=== PATIENT | female | born 1980 | race Two or more races ===

== ENCOUNTER 2018-12-29 16:05 | Observation (INO) | payer OTHER ==
[~2018-12-29] VITALS: Ht 164 cm; Wt 71.7 kg
[~2018-12-29 16:05] MED LIST: DSS100 PO; IBUP-2070 PO; PERCT PO; PREN1TAB80 PO
[2018-12-29 16:44] VITALS: BP 117/59
== END 2018-12-29 17:30 | disposition home or self-care (01) ==
LOC: 4S 16:05
PROVIDERS: ADMIT Obstetrics & Gynecology; ATTEND Obstetrics & Gynecology
DX: O24.419 Gestational diabetes mellitus in pregnancy, unspecified control (principal); Z3A.37 37 weeks gestation of pregnancy
CPT/HCPCS: 36415; 76805; 81002; 83036; G0378

== ENCOUNTER 2019-01-10 10:22 | Inpatient (IN) | payer OTHER ==
[~2019-01-10] VITALS: Ht 164 cm; Wt 72.6 kg
[2019-01-10] MEDS ORDERED: RINGERS SOLUTION,LACTATED 1,000 ML IV PRN (10:35)
[2019-01-10] MEDS ORDERED: OXYTOCIN 30 UNITS/LACT RINGERS 500 ML IV ONE ×2 (10:35→22:09)
[2019-01-10] MEDS ORDERED: METOCLOPRAMIDE HCL 5 MG/ML 2 ML VIAL IVP PRN (10:45)
[2019-01-10] MEDS ORDERED: LIDOCAINE/PF 1% 30 ML VIAL INJ PRN ×2 (10:45→22:15)
[2019-01-10] MEDS ORDERED: FentaNYL CITRATE-PF 100 MCG/2 ML VIAL IVP PRN (10:45)
[2019-01-10] MEDS ORDERED: CITRIC ACID/SODIUM CITRATE 30 ML SOLUTION UDCUP PO PRN (10:45)
[2019-01-10] MEDS ORDERED: OXYGEN THERAPY IH SCH (10:45)
[2019-01-10] MEDS ORDERED: METHYLERGONOVINE MALEATE 0.2 MG/ML VIAL IM PRN (10:45)
[2019-01-10] MEDS: RINGERS SOLUTION,LACTATED 1,000 ML IV SCH ×3 (11:12→18:34)
[2019-01-10 11:19] LABS: BASOPHILS % (AUTO) 0.5 % (0.0-2.0); EOSINOPHILS % (AUTO) 1.1 % (1.0-6.0); HEMOGLOBIN 13.4 g/dL (12.0-16.0); LYMPHOCYTES # (AUTO) 1.5 K/uL (1.0-4.8); LYMPHOCYTES % (AUTO) 19.1 % (22.0-44.0); MEAN CORPUSCULAR HEMOGLOBIN 29.9 pg (26.0-34.0); MEAN CORPUSCULAR HGB CONC 34.2 G/dL (31.0-37.0); MEAN CORPUSCULAR VOLUME 88 fL (80-100); MONOCYTES # (AUTO) 0.4 K/uL (0.1-1.0); MONOCYTES % (AUTO) 4.6 % (2.0-9.0); NEUTROPHILS # (AUTO) 5.9 K/uL (1.8-7.7); NEUTROPHILS % (AUTO) 74.7 % (40.0-70.0); PLATELET COUNT (AUTO) 152 K/uL (150-450); RED BLOOD CELL COUNT(AUTO) 4.46 MIL/uL (4.00-5.20); RED CELL DISTRIBUTION WIDTH 15.1 % (11.5-14.5)
[2019-01-10 11:23] VITALS: BP 117/52
[2019-01-10] MEDS ORDERED: METF-445 PO (11:27)
[2019-01-10] MEDS ORDERED: DINOPROSTONE 10 MG VAGINAL SUPPOSITORY VG ONE (11:30)
[2019-01-10 12:13] LABS: GLUCOMETER DEV NAME(LOC) 4S.; GLUCOSE,POINT OF CARE 117 MG/DL (70-110)
[2019-01-10] MEDS ORDERED: OXYTOCIN 30 UNITS/LACT RINGERS 500 ML IV PRN (20:43)
[2019-01-10] MEDS ORDERED: ROPIVACAINE HCL/PF 0.2% 100 ML ED ONE (21:00)
[2019-01-10] MEDS ORDERED: LIDOCAINE/PF 2% 5 ML VIAL ONE (21:00)
[2019-01-10] MEDS ORDERED: DiphenhydrAMINE HCL 50 MG/ML VIAL IVP PRN (21:15)
[2019-01-10] MEDS ORDERED: ROPIVACAINE HCL/PF 0.2% 100 ML ED PRN (21:15)
[2019-01-10] MEDS ORDERED: ONDANSETRON HCL 4 MG/2 ML VIAL IVP PRN (21:15)
[2019-01-10] MEDS ORDERED: NALBUPHINE HCL 10 MG/ML VIAL IVP PRN (21:15)
[2019-01-10] MEDS ORDERED: MINERAL OIL 30 ML UDCUP VG ONE (21:30)
[2019-01-10] MEDS ORDERED: LANOLIN 7 GM OINTMENT TP PRN (22:15)
[2019-01-10] MEDS ORDERED: GLYCERIN/WITCH HAZEL LEAF 40 PADS JAR TP PRN (22:15)
[2019-01-10] MEDS ORDERED: MAGNESIUM HYDROXIDE SUSPENSION 30 ML UDCUP PO PRN (22:15)
[2019-01-10] MEDS ORDERED: OxyCODONE HCL/ACETAMINOPHEN 5-325 MG TABLET PO PRN ×2 (22:15)
[2019-01-10] MEDS ORDERED: BENZOCAINE 20%/MENTHOL 56 GM SPRAY CANISTER TP PRN (22:15)
[2019-01-11] MEDS: IBUPROFEN 800 MG TABLET PO PRN ×3 (01:01→19:34)
[2019-01-11 06:21] LABS: BASOPHILS % (AUTO) 0.6 % (0.0-2.0); EOSINOPHILS % (AUTO) 0.4 % (1.0-6.0); HEMOGLOBIN 12.1 g/dL (12.0-16.0); LYMPHOCYTES # (AUTO) 1.7 K/uL (1.0-4.8); LYMPHOCYTES % (AUTO) 13.4 % (22.0-44.0); MEAN CORPUSCULAR HEMOGLOBIN 29.4 pg (26.0-34.0); MEAN CORPUSCULAR HGB CONC 33.6 G/dL (31.0-37.0); MEAN CORPUSCULAR VOLUME 87 fL (80-100); MONOCYTES # (AUTO) 0.8 K/uL (0.1-1.0); MONOCYTES % (AUTO) 6.4 % (2.0-9.0); NEUTROPHILS # (AUTO) 10.2 K/uL (1.8-7.7); NEUTROPHILS % (AUTO) 79.2 % (40.0-70.0); PLATELET COUNT (AUTO)-OB 126 K/uL (150-450); RED BLOOD CELL COUNT(AUTO) 4.12 MIL/uL (4.00-5.20); RED CELL DISTRIBUTION WIDTH 15.3 % (11.5-14.5)
[2019-01-12] MEDS: IBUPROFEN 800 MG TABLET PO PRN (01:35)
[2019-01-12] MEDS ORDERED: IBUP-2071 PO (08:36)
[2019-01-12] MEDS ORDERED: DOCU-275 PO (08:37)
== END 2019-01-12 10:05 | disposition home or self-care (01) | DRG 807 ==
LOC: 4S 10:22 → OBSVTOIN 10:43 → UNDOADMOB 10:43 → INTOOBSV 10:43 → PREOBSVTOIN 01-16 10:42 → PREINTOOBSV 01-16 10:42
PROVIDERS: ADMIT Obstetrics & Gynecology; ATTEND Obstetrics & Gynecology
PROC: 10E0XZZ Delivery of Products of Conception, External Approach (ICD-10-PCS; principal; 2019-01-10)
PROC: 0KQM0ZZ Repair Perineum Muscle, Open Approach (ICD-10-PCS; 2019-01-10)
PROC: 3E0R3BZ Introduction of Anesthetic Agent into Spinal Canal, Percutaneous Approach (ICD-10-PCS; 2019-01-10)
PROC: 00HU33Z Insertion of Infusion Device into Spinal Canal, Percutaneous Approach (ICD-10-PCS; 2019-01-10)
DX: O69.81X0 Labor and delivery complicated by cord around neck, without compression, not applicable or unspecified (principal); Z37.0 Single live birth; O70.1 Second degree perineal laceration during delivery; Z3A.38 38 weeks gestation of pregnancy
CPT/HCPCS: 86850; 86900; 86901; J2590; J2795; J3490; J7120